=== PATIENT | male | born 1995 | race Caucasian/White ===

== ENCOUNTER 2020-04-24 17:42 | Emergency (ER) | payer OTHER ==
[~2020-04-24] VITALS: Ht 182.9 cm; Wt 79.4 kg
[2020-04-24 18:06] VITALS: BP 118/62
--- NOTE | 2020-04-24 18:07 | NUR ---
patient came in to the [facility], in custody, for OTB c/o left wrist and right calf pain. On room air, breathing evenly and unlabored. kept comfortable, will continue to monitor accordingly.
--- NOTE | 2020-04-24 18:09 | NUR ---
KEELEY CABELLO AT BEDSIDE
--- NOTE | 2020-04-24 18:45 | NUR ---
PATIENT ELOPED WHILE IN [employer]ICE CUSTODY
== END 2020-04-24 18:41 | disposition left against medical advice (07) ==
LOC: ER 17:47
DX: S62.002K Unspecified fracture of navicular [scaphoid] bone of left wrist, subsequent encounter for fracture with nonunion (principal); M79.661 Pain in right lower leg; M25.532 Pain in left wrist; Z02.89 Encounter for other administrative examinations; V19.9XXD Pedal cyclist (driver) (passenger) injured in unspecified traffic accident, subsequent encounter
CPT/HCPCS: 73110; 73130-TC